=== PATIENT | male | born 1960 | race Caucasian/White ===

== ENCOUNTER → 2020-12-16 | Outpatient (CLI) | payer BC ==
--- NOTE | 2020-12-16 13:12 | RAD ---
EXAM: XR SHOULDER_LEFT 2+ VIEWS 12/16/2020 8:56 AM CLINICAL INDICATION: Left shoulder pain COMPARISON: None TECHNIQUE: 3 views of the left shoulder. FINDINGS: No acute fracture. Alignment is normal. Joint spaces are maintained. The subacromial space is preserved. IMPRESSION: No acute osseous abnormality. Electronically signed by: Sommer Lim MD (12/16/2020 1:09 PM) [id number]
== END ==
LOC: RAD 08:51
PROVIDERS: ATTEND Physician Assistant
DX: M25.512 Pain in left shoulder (principal)
CPT/HCPCS: 73030